=== PATIENT | female | born 1970 | race Caucasian/White ===

== ENCOUNTER 2020-11-09 19:45 | Emergency (ER) | payer OTHER ==
[~2020-11-09] VITALS: Ht 172.7 cm; Wt 70.3 kg
[2020-11-09] MEDS ORDERED: SUPER THERAVIT1 EACH PO (19:58)
[2020-11-09] MEDS ORDERED: CRANBERRY400 MG PO (19:58)
[2020-11-09 20:48] LABS: URINE BILIRUBIN NEGATIVE (Negative); URINE BLOOD 2+ (Negative); URINE CLARITY CLEAR; URINE COLOR YELLOW; URINE GLUCOSE-RANDOM NEGATIVE (Negative); URINE KETONES NEGATIVE (Negative); URINE LEUKOCYTES-REFLEX TRACE (Negative); URINE PROTEIN NEGATIVE (Negative); URINE SPECIFIC GRAVITY >= 1.030 (1.005-1.030); URINE UROBILINOGEN 0.2 E.U./dl (0.2-1.0)
[2020-11-09 20:52] LABS: URINE NITRITE-REFLEX POSITIVE (Negative)
[2020-11-09 21:09] LABS: BACTERIA-REFLEX >30 Many /HPF (None Seen)
[2020-11-09 21:10] LABS: CASTS None Seen /LPF (None Seen); MUCUS None Seen strn/LPF (None Seen); URINE RBC 3-10 Few /HPF (0-2); URINE WBC-REFLEX >25 Many /HPF (0-5)
[2020-11-09 21:11] LABS: CRYSTALS None Seen /LPF (None Seen); SQUAMOUS 0-3 Few /LPF (0-3)
[2020-11-09 21:13] LABS: ABSOLUTE BASOPHILS 0.1 thou/uL (0.0-0.2); ABSOLUTE EOSINOPHILS 0.1 thou/uL (0.0-0.7); ABSOLUTE LYMPHOCYTES 2.9 thou/uL (0.8-5.3); ABSOLUTE MONOCYTES 0.5 thou/uL (0.0-1.2); ABSOLUTE NEUTROPHILS 4.1 thou/uL (1.6-8.1); BASOPHILS 0.8 %; EOSINOPHILS 1.5 %; HEMATOCRIT 38.5 % (37.0-47.0); HEMOGLOBIN 13.2 gm/dL (12.0-15.0); LYMPHOCYTES 37.6 %; MCH 31.7 pg (26.0-34.0); MCHC 34.3 g/dL (28.0-37.0); MCV 92.5 fL (80.0-100.0); MONOCYTES 6.5 %; NUCLEATED RBCS 0 /100WBC; PLATELET COUNT* 216 thou/uL (150-400); POLYS 53.6 %; RBC 4.17 mil/uL (4.20-5.00); RDW-CV 13.2 % (10.5-14.5); WBC 7.6 thou/uL (4.0-11.0)
[2020-11-09 21:19] LABS: CREATININE 0.6 mg/dL (0.6-1.3); POTASSIUM 3.6 mmol/L (3.5-5.1)
[2020-11-09 21:23] LABS: ALBUMIN 3.9 g/dL (3.4-5.0); TOTAL BILIRUBIN 0.6 mg/dL (<0.1-1.0); TOTAL PROTEIN 7.5 g/dL (6.4-8.2)
[2020-11-09] MEDS ORDERED: TRAMADOL 50 MG50 MG PO (22:53)
[2020-11-09] MEDS ORDERED: FLAGYL500 M1 PO (22:53)
[2020-11-09] MEDS ORDERED: CEPHALEXIN 250250 M1 PO (22:53)
[2020-11-09 23:12] VITALS: BP 127/89
== END 2020-11-09 23:12 | disposition home or self-care (01) ==
LOC: M.ERS 19:45
PROVIDERS: Emergency Medicine
DX: N39.0 Urinary tract infection, site not specified (principal); K52.9 Noninfective gastroenteritis and colitis, unspecified; F17.210 Nicotine dependence, cigarettes, uncomplicated

== ENCOUNTER → 2020-12-15 | Day surgery (SDC) | payer OTHER ==
[~2020-12-15] MED LIST: CEPHALEXIN 250250 M1 PO; CRANBERRY400 MG PO; FLAGYL500 M1 PO; HYDROXYZINE HCL25 M2 PO; ROXICODONE5 MG PO; SERTRALINE HCL100 MG PO; SUPER THERAVIT1 EACH PO; TRAMADOL 50 MG50 MG PO
--- NOTE | 2020-12-16 11:46 | OP ---
[address] [address] OPERATIVE REPORT Name: KATT WILKES Room: [facility].#: [id number] Admission: 12/15/20 Attend Phys: Deysi Luo DO Discharge: Date of : 70 Report #: [id number] THIS REPORT FOR: cc: Lobo Cobb Vincent R. DO Brock, Christie M. DO ~ DOC #: [id number] cc: Lobo Cobb DO Dictated by Italo Hernandez DO DATE OF SURGERY: 12/15/2020 PREOPERATIVE DIAGNOSIS: Right inguinal hernia. POSTOPERATIVE DIAGNOSIS: Right incisional groin hernia. FINDINGS: Several old scars in the right groin. Moderate incisional fat-containing hernia. The bowel could be seen just below the defect and was protected. SURGEON: Deysi Luo DO CO-SURGEON: Italo Hernandez, PGY5 ATTENDING PHYSICIAN: Ana Pennington PGY3 OPERATION: Right groin incisional hernia repair. ANESTHESIA: General, local. ESTIMATED BLOOD LOSS: 5 mL. SPECIMEN: None. COMPLICATIONS: None. CONDITION: Stable. DISPOSITION: PACU to home. INDICATIONS: The patient is a 50-year-old female who presented with a bulge in her right groin. On physical examination, it was consistent with a hernia. She was informed of the risks and benefits of hernia repair with risks including, but not limited to bleeding, infection, nerve injury, chronic pain and hernia recurrence. She understood these risks and decided to proceed with surgery. [address] [address] OPERATIVE REPORT Name: KATT WILKES Room: [facility].#: [id number] Admission: 12/15/20 Attend Phys: Deysi Luo DO Discharge: Date of : 70 Report #: [id number] DESCRIPTION OF PROCEDURE: After informed consent was obtained, the patient was brought to the operating room and placed in the supine position. SCDs were on and running. Preoperative antibiotics were given. General anesthesia was administered with an LMA. The patient was prepped and draped in a usual sterile fashion. A surgical pause was done to confirm proper patient and procedure. The right pubic tubercle and ASIS were marked. She had a low pelvic Pfannenstiel incision, that the bulge was at the lateral border of. This incision was used as it was approximately in the region where we would have placed our similar incision. It was infiltrated with 0.5% Marcaine, incised with a 15 blade. Dissection was carried through the subcutaneous tissue using cautery. There was dense scar tissue superficial to the external oblique. This was incised using cautery. The external oblique was identified, was stripped of overlying tissue. IT was elevated with two Kellys and incised using Metzenbaum scissors. The internal oblique fibers were swept away from the external fibers and the external fibers were incised medially and laterally. The external oblique was quite thick and dense with scar tissue from previous surgery. Once this was incised to its full length of the incision, blunt dissection was used to develop a plane just deep to this. There was an absence of internal oblique muscle fibers at this level and there was seemingly a complete absence of any inguinal floor. As we dissected this area, it became apparent that this was an incisional hernia at the lateral border of her previous low transverse incision. There was preperitoneal fat through this defect. We were in the preperitoneal plane and the peritoneum was preserved. We did see bowel through the peritoneum; however, the peritoneum was not violated. The contents were reduced into the preperitoneal space. Because there was an absence of identifiable fascial edge on the lateral side due to the blowout, the medial edge of the fascia was tacked to the shelving edge of the inguinal ligament using 3-0 PDS. This was closed in a running continuous fashion with 3-0 PDS. A ProGrip 15 cm sheet was then selected and cut to size to cover the suture line. This was inserted and deployed in adequate position. The mesh was then sewed to the pubic tubercle with a single stitch of 3-0 PDS and medially to the rectus using 3-0 PDS. The edges of the external oblique were then reinforced by crossing them and suturing them in a running fashion over each other to further reinforce the repair. This was done using 0 Vicryl. Once this was achieved, there was excellent tension-free repair of the hernia. The wound was then injected with additional 0.5% Marcaine. We closed the subcutaneous tissue in a layered fashion using 3-0 Vicryl and 4-0 Monocryl. The wound was cleansed and dressed with Dermabond. The patient was extubated and transferred to the PACU in stable condition. Italo Hernandez [place] [address] OPERATIVE REPORT Name: KATT WILKES [id number] Admission: 12/15/20 Attend Phys: Deysi Luo DO Discharge: Date of : 70 Report #: [id number] <ELECTRONICALLY SIGNED> By: Deysi Luo DO 12/16/20 1146 [id number] [id number] Luo DO /nt
== END | disposition home or self-care (01) ==
LOC: M.SUR 04:50
PROVIDERS: ATTEND Surgery
DX: K43.2 Incisional hernia without obstruction or gangrene (principal); F17.210 Nicotine dependence, cigarettes, uncomplicated; E05.90 Thyrotoxicosis, unspecified without thyrotoxic crisis or storm; Z98.890 Other specified postprocedural states; Z79.899 Other long term (current) drug therapy; Z20.822 Contact with and (suspected) exposure to COVID-19